=== PATIENT | female | born 1985 | race African-American/Black ===

== ENCOUNTER 2016-11-12 17:54 | Emergency (ER) | payer SELFPAY ==
[2016-11-12 18:55] LABS: BASOPHILS 0.2 % (0-2); HEMOGLOBIN 12.4 g/dL (12-16); IMMATURE GRANULOCYTES 0.4 % (0-5); LYMPHOCYTES 25.6 % (15-50); MCH 32.2 pg (26.0-34.0); MCHC 33.5 g/dL (31.0-37.0); MCV 96.1 fL (80.0-100.0); MONOCYTES 8.9 % (2-11); NEUTROPHILS 61.9 % (40-80); PLATELET COUNT 295 10x3/uL (130-400); RBC 3.85 10x6/uL (4.00-5.40); RDW 14.3 % (11.5-14.5); WBC 18.6 10x3/uL (4.8-10.8)
[2016-11-12 19:03] LABS: APPEARANCE SLT CLOUDY (CLEAR); BILIRUBIN NEGATIVE (NEGATIVE); COLOR YELLOW (YELLOW); GLUCOSE NEGATIVE (NEGATIVE); KETONE NEGATIVE (NEGATIVE); LEUKOCYTE ESTERASE 1+ (NEGATIVE); NITRITE NEGATIVE (NEGATIVE); PROTEIN 1+ mg/dL (NEGATIVE); SPECIFIC GRAVITY 1.025 (1.005-1.020); UROBILINOGEN NORMAL (NORMAL)
[2016-11-12 19:05] LABS: BACTERIA MODERATE /hpf (NONE SEEN); EPITHELIAL CELLS 0-5 /hpf (0-5); MUCUS >1+ /lpf (NONE SEEN)
[2016-11-12 19:15] LABS: HCG SERUM POSITIVE (NEGATIVE)
[2016-11-12 19:34] LABS: ALBUMIN 3.6 g/dL (3.4-5.0); ALKALINE PHOSPHATASE 134 U/L (46-116); ALT (SGPT) 34 U/L (10-68); BILIRUBIN - TOTAL 0.15 mg/dL (0.2-1.3); CALC OSMOLALITY 276 mosm/kg (275-300); CALCIUM 9.1 mg/dL (8.5-10.1); CARBON DIOXIDE 24.8 mmol/L (21.0-32.0); CHLORIDE - SERUM 104 mmol/L (98-107); CREATININE - SERUM 0.7 mg/dL (0.6-1.3); GLUCOSE 112 mg/dL (74-106); PROTEIN - SERUM 7.5 g/dL (6.4-8.2); SODIUM 139 mmol/L (136-145); UREA NITROGEN 7 mg/dL (7-18); eGFR NON AFRICAN AMERICAN > 90 mL/min (90-120)
== END 2016-11-12 21:03 | disposition home or self-care (01) ==
LOC: D.ER 17:54
PROVIDERS: Emergency Medicine; Physician Assistant
DX: R10.2 Pelvic and perineal pain (principal); R31.9 Hematuria, unspecified; N39.0 Urinary tract infection, site not specified; F17.200 Nicotine dependence, unspecified, uncomplicated; I10 Essential (primary) hypertension

== ENCOUNTER 2016-11-14 11:44 | Emergency (ER) | payer SELFPAY ==
[2016-11-14 12:11] LABS: BASOPHILS 0.3 % (0-2); EOSINOPHILS 3.1 % (0-7); HEMATOCRIT 38.3 % (36.0-48.0); HEMOGLOBIN 12.7 g/dL (12-16); IMMATURE GRANULOCYTES 0.2 % (0-5); LYMPHOCYTES 30.7 % (15-50); MCH 31.6 pg (26.0-34.0); MCHC 33.2 g/dL (31.0-37.0); MCV 95.3 fL (80.0-100.0); MEAN PLATELET VOLUME 10.7 fL (7.4-10.4); MONOCYTES 7.2 % (2-11); NEUTROPHILS 58.5 % (40-80); RBC 4.02 10x6/uL (4.00-5.40); WBC 14.2 10x3/uL (4.8-10.8)
[2016-11-14 12:20] LABS: PLATELET COUNT 359 10x3/uL (130-400)
[2016-11-14 12:54] LABS: APPEARANCE CLOUDY (CLEAR); BILIRUBIN NEGATIVE (NEGATIVE); COLOR DK YELLOW (YELLOW); GLUCOSE NEGATIVE (NEGATIVE); KETONE NEGATIVE (NEGATIVE); LEUKOCYTE ESTERASE 1+ (NEGATIVE); NITRITE NEGATIVE (NEGATIVE); PROTEIN TRACE mg/dL (NEGATIVE); UROBILINOGEN NORMAL (NORMAL)
[2016-11-14 13:04] LABS: BACTERIA MANY /hpf (NONE SEEN); HYALINE CAST OCC /lpf (NONE SEEN); RED CELLS - URINE >50 /hpf (0-5); SPERMATOZOA PRESENT /hpf (NONE SEEN); WHITE CELLS - URINE 25-50 /hpf (0-5)
== END 2016-11-14 15:02 | disposition home or self-care (01) ==
LOC: D.ER 11:44
PROVIDERS: Emergency Medicine; Nurse Practitioner Family
DX: O23.41 Unspecified infection of urinary tract in pregnancy, first trimester (principal); Z3A.01 Less than 8 weeks gestation of pregnancy; I10 Essential (primary) hypertension

== ENCOUNTER 2017-02-19 03:16 | Emergency (ER) | payer MEDICAID ==
[2017-02-19 03:55] LABS: APPEARANCE CLEAR (CLEAR); BILIRUBIN NEGATIVE (NEGATIVE); COLOR YELLOW (YELLOW); GLUCOSE NEGATIVE (NEGATIVE); KETONE NEGATIVE (NEGATIVE); LEUKOCYTE ESTERASE NEGATIVE (NEGATIVE); NITRITE NEGATIVE (NEGATIVE); PROTEIN NEGATIVE (NEGATIVE); UROBILINOGEN NORMAL (NORMAL)
[2017-02-19 04:02] LABS: BASOPHILS 0.4 % (0-2); EOSINOPHILS 5.4 % (0-7); HEMATOCRIT 37.1 % (36.0-48.0); HEMOGLOBIN 12.4 g/dL (12-16); IMMATURE GRANULOCYTES 0.1 % (0-5); LYMPHOCYTES 34.4 % (15-50); MCH 31.9 pg (26.0-34.0); MCHC 33.4 g/dL (31.0-37.0); MCV 95.4 fL (80.0-100.0); MEAN PLATELET VOLUME 12.1 fL (7.4-10.4); MONOCYTES 7.7 % (2-11); PLATELET COUNT 207 10x3/uL (130-400); RBC 3.89 10x6/uL (4.00-5.40); RDW 15.2 % (11.5-14.5); WBC 13.7 10x3/uL (4.8-10.8)
[2017-02-19 04:17] LABS: HCG URINE NEGATIVE (NEGATIVE)
[2017-02-19 04:19] LABS: ALKALINE PHOSPHATASE 83 U/L (46-116); ALT (SGPT) 34 U/L (10-68); CALC OSMOLALITY 272 mosm/kg (275-300); CALCIUM 8.9 mg/dL (8.5-10.1); CARBON DIOXIDE 29.4 mmol/L (21.0-32.0); CHLORIDE - SERUM 100 mmol/L (98-107); CREATININE - SERUM 0.8 mg/dL (0.6-1.3); GLUCOSE 106 mg/dL (74-106); POTASSIUM - SERUM 3.4 mmol/L (3.5-5.1); PROTEIN - SERUM 8.3 g/dL (6.4-8.2); SODIUM 137 mmol/L (136-145); UREA NITROGEN 9 mg/dL (7-18); eGFR NON AFRICAN AMERICAN 90 mL/min (90-120)
== END 2017-02-19 05:15 | disposition home or self-care (01) ==
LOC: D.ER 03:16
PROVIDERS: Emergency Medicine
DX: I10 Essential (primary) hypertension (principal); J01.90 Acute sinusitis, unspecified; R50.9 Fever, unspecified; R11.2 Nausea with vomiting, unspecified; R09.82 Postnasal drip; R09.89 Other specified symptoms and signs involving the circulatory and respiratory systems; F17.200 Nicotine dependence, unspecified, uncomplicated

== ENCOUNTER 2017-03-27 16:40 | Emergency (ER) | payer MEDICAID | END 2017-03-27 18:15 | disposition home or self-care (01) | LOC: D.ER 16:40 | DX: K52.9 Noninfective gastroenteritis and colitis, unspecified (principal); I10 Essential (primary) hypertension; F17.200 Nicotine dependence, unspecified, uncomplicated ==